=== PATIENT | male | born 1960 | race Caucasian/White ===

== ENCOUNTER 2017-10-31 20:50 | Observation (INO) ==
[2017-10-31] MEDS ORDERED: ASPIRIN 325 MG TABLET PO STA (21:37)
[2017-10-31] MEDS ORDERED: NITROGLYCERIN 2% OINT 1 INCH/GM PACK TOP STA (21:37)
[2017-10-31] MEDS ORDERED: ALUM/MAG/SIMETH/LIDO VISC 1:1 30 ML BOTTLE PO STA (21:37)
[2017-10-31] MEDS ORDERED: ONDANSETRON 4 MG/2 ML VIAL IV STA (21:37)
[2017-10-31] MEDS ORDERED: MORPHINE 4 MG/1 ML VIAL IV STA (21:37)
[2017-10-31] MEDS ORDERED: ONDANSETRON 4 MG/2 ML VIAL ONE (22:14)
[2017-10-31] MEDS ORDERED: NITROGLYCERIN 2% OINT 1 INCH/GM PACK TOP ONE (22:14)
[2017-10-31] MEDS ORDERED: ASPIRIN 325 MG TABLET ONE (22:15)
[2017-10-31] MEDS ORDERED: ALUM/MAG/SIMETH/LIDO VISC 1:1 30 ML BOTTLE PO ONE (22:15)
[2017-10-31] MEDS ORDERED: MORPHINE 4 MG/1 ML VIAL ONE (22:15)
[2017-10-31 22:34] LABS: Basophils # 0.1 10*3/uL (0.0-0.2); Basophils % 1.5 % (0.0-0.8); Eosinophils # 0.1 10*3/uL (0.0-0.87); Eosinophils % 0.7 % (0.00-10.9); Hematocrit 42.2 VOL% (42.0-52.0); Hemoglobin 14.7 GM/DL (14.0-18.0); Immature Granulocytes % 0.1 %; Immature Granulocytes Absolute 0.01 #; Lymphocytes # 3.1 10*3/uL (1.4-4.0); Lymphocytes % 46.6 % (21.2-54.2); Mean Corpuscular HGB Conc 34.8 GM/DL (32-36); Mean Corpuscular Hemoglobin 31 PG (27-34); Mean Corpuscular Volume 87.7 FL (87-102); Mean Platelet Volume 11.7 FL (9.6-12.0); Monocytes # 0.7 10*3/uL (0.11-0.8); Monocytes % 10.3 % (1.7-12.7); Neutrophils # 2.7 10*3/uL (1.4-7.4); Neutrophils % 40.8 % (38.7-73.9); Platelet Count 280 T/CUMM (130-400); Red Blood Count 4.81 MC/CUMM (3.8-5.5); Red Cell Distribution Width 12.7 % (9.3-17.3); White Blood Count 6.7 T/CUMM (4-12)
[2017-10-31 22:45] LABS: INR 1.2; PT Patient Result 12.8 SECS
[2017-10-31 23:06] LABS: Alanine Aminotransferase 46 U/L (16-61); Alkaline Phosphatase 62 U/L (45-117); Aspartate Amino Transferase 23 U/L (0-37); Bilirubin,Total < 0.39 MG/DL (0.2-1.0); Blood Urea Nitrogen 26 MG/DL (7-18); Calcium 9.3 MG/DL (8.5-10.1); Glucose 110 MG/DL (74-106); Osmolality,Calculated 280.7 MOS/KG (273-304); Potassium 3.9 MMOL/L (3.5-5.1); Sodium 138 MMOL/L (136-145); Total Protein 7.1 G/DL (6.4-8.3)
[2017-10-31] MEDS ORDERED: MAGNESIUM SULF RIDER 2 GM in PREMIX 1 EACH IV STA (23:09)
[2017-10-31] MEDS ORDERED: MAGNESIUM SULF RIDER 50 ML IV ONE (23:16)
[2017-11-01] MEDS ORDERED: SIMETHICONE CHEW 125 MG TABLET PO PRN (01:01)
[2017-11-01] MEDS ORDERED: MORPHINE 4 MG/1 ML VIAL IV PRN (01:01)
[2017-11-01] MEDS ORDERED: GLUCAGON 1 MG VIAL IM PRN (01:01)
[2017-11-01] MEDS ORDERED: NITROGLYCERIN SL 0.4 MG TABLET SL PRN (01:01)
[2017-11-01] MEDS ORDERED: ONDANSETRON 4 MG/2 ML VIAL IV PRN (01:01)
[2017-11-01] MEDS ORDERED: ZALEPLON 5 MG CAPSULE PO PRN (01:01)
[2017-11-01] MEDS ORDERED: DEXTROSE 50% 25 GM/50 ML VIAL IV PRN (01:01)
[2017-11-01] MEDS: DILTIAZEM CD 120 MG CAPSULE PO SCH ×3 (01:50→22:05)
[2017-11-01] MEDS: INSULIN REGULAR 100 UNIT/ML SUBCUT SCH ×4 (08:11→22:03)
[2017-11-01] MEDS ORDERED: MAGNESIUM SULF RIDER 4 GM in PREMIX 1 EACH IV PRN (08:24)
[2017-11-01] MEDS ORDERED: MAGNESIUM SULF RIDER 2 GM in PREMIX 1 EACH IV PRN ×2 (08:24→10:55)
[2017-11-01] MEDS ORDERED: RIVAROXABAN 20 MG TABLET PO SCH (09:00)
[2017-11-01] MEDS: methylPREDNISolone SOD SUC 125 MG/2 ML VIAL IV SCH ×3 (10:26→22:06)
[2017-11-01] MEDS ORDERED: POTASSIUM CHLORIDE RIDER 10 MEQ in PREMIX 1 EACH IV PRN (10:55)
[2017-11-01] MEDS ORDERED: DIAZEPAM 5 MG TABLET PO ONE (10:55)
[2017-11-01] MEDS: SODIUM CHLORIDE 0.45% 1,000 ML IV SCH ×2 (11:00→22:07)
[2017-11-01] MEDS: diphenhydrAMINE CAP 25 MG CAPSULE PO SCH ×3 (13:09→22:04)
[2017-11-01] MEDS: FAMOTIDINE 20 MG TABLET PO SCH ×2 (13:09→22:06)
[2017-11-01] MEDS: ASPIRIN EC 81 MG TABLET PO SCH (13:09)
[2017-11-01] MEDS: LOSARTAN 50 MG TABLET PO SCH (13:10)
[2017-11-01] MEDS: METOPROLOL SUCCINATE XL 50 MG TABLET PO SCH (13:10)
[2017-11-01] MEDS: DIGOXIN 0.25 MG TABLET PO SCH (13:10)
[2017-11-01] MEDS: PANTOPRAZOLE 40 MG TABLET PO SCH (13:11)
[2017-11-01] MEDS: GEMFIBROZIL 600 MG TABLET PO SCH ×2 (13:11→22:05)
[2017-11-01] MEDS: CETIRIZINE 10 MG TABLET PO SCH (13:11)
[2017-11-01] MEDS ORDERED: HEPARIN/NACL 0.9% 2 UNITS/ML 1,000 ML IV ONE (13:14)
[2017-11-01] MEDS: MAGNESIUM CHLORIDE 64 MG TABLET PO SCH (13:16)
[2017-11-01] MEDS: DOCUSATE SODIUM 100 MG CAPSULE PO SCH ×2 (13:16→22:05)
[2017-11-01] MEDS: glyBURIDE/METFORMIN 5-500 MG TABLET PO SCH ×2 (13:16→20:26)
[2017-11-01] MEDS: OMEGA 3 ACID ETHYL ESTERS 1 GM CAPSULE PO SCH ×2 (13:16→22:04)
[2017-11-01] MEDS ORDERED: HYDROmorphone 2 MG/1 ML VIAL ONE (14:41)
[2017-11-01] MEDS ORDERED: MIDAZOLAM 2 MG/2 ML VIAL ONE (14:41)
[2017-11-01] MEDS ORDERED: BIVALIRUDIN 250 MG VIAL IV ONE (15:25)
[2017-11-01] MEDS ORDERED: tiZANidine 4 MG TABLET PO ONE (22:00)
[2017-11-01] MEDS: TICAGRELOR 90 MG TABLET PO SCH (22:06)
[2017-11-02] MEDS: diphenhydrAMINE CAP 25 MG CAPSULE PO SCH ×2 (03:55→09:45)
[2017-11-02] MEDS: methylPREDNISolone SOD SUC 125 MG/2 ML VIAL IV SCH ×2 (04:00→09:44)
[2017-11-02] MEDS: SODIUM CHLORIDE 0.45% 1,000 ML IV SCH (04:00)
[2017-11-02 05:08] LABS: Basophils % 0.2 % (0.0-0.8); Hematocrit 41.2 VOL% (42.0-52.0); Hemoglobin 14.4 GM/DL (14.0-18.0); Immature Granulocytes % 0.6 %; Immature Granulocytes Absolute 0.06 #; Lymphocytes # 1.1 10*3/uL (1.4-4.0); Lymphocytes % 10.3 % (21.2-54.2); Mean Corpuscular Hemoglobin 30 PG (27-34); Mean Corpuscular Volume 86.4 FL (87-102); Monocytes # 0.2 10*3/uL (0.11-0.8); Monocytes % 1.9 % (1.7-12.7); Neutrophils # 9.5 10*3/uL (1.4-7.4); Platelet Count 271 T/CUMM (130-400); Red Blood Count 4.77 MC/CUMM (3.8-5.5); Red Cell Distribution Width 12.6 % (9.3-17.3); White Blood Count 10.9 T/CUMM (4-12)
[2017-11-02 06:02] LABS: Troponin I Only < 0.015 NG/ML (0.00-0.045)
[2017-11-02 06:16] LABS: Calcium 9.3 MG/DL (8.5-10.1); Osmolality,Calculated 279.2 MOS/KG (273-304); Potassium 4.7 MMOL/L (3.5-5.1); Risk Ratio 7.62; VLDL CHOLESTEROL 46.8 MG/DL
[2017-11-02 07:46] VITALS: BP 121/76
[2017-11-02] MEDS: INSULIN REGULAR 100 UNIT/ML SUBCUT SCH (09:43)
[2017-11-02] MEDS: LOSARTAN 50 MG TABLET PO SCH (09:44)
[2017-11-02] MEDS: DIGOXIN 0.25 MG TABLET PO SCH (09:44)
[2017-11-02] MEDS: MAGNESIUM CHLORIDE 64 MG TABLET PO SCH (09:44)
[2017-11-02] MEDS: DILTIAZEM CD 120 MG CAPSULE PO SCH (09:44)
[2017-11-02] MEDS: OMEGA 3 ACID ETHYL ESTERS 1 GM CAPSULE PO SCH (09:45)
[2017-11-02] MEDS: METOPROLOL SUCCINATE XL 50 MG TABLET PO SCH (09:45)
[2017-11-02] MEDS: FAMOTIDINE 20 MG TABLET PO SCH (09:45)
[2017-11-02] MEDS: PANTOPRAZOLE 40 MG TABLET PO SCH (09:45)
[2017-11-02] MEDS: ASPIRIN EC 81 MG TABLET PO SCH (09:45)
[2017-11-02] MEDS: TICAGRELOR 90 MG TABLET PO SCH (09:45)
[2017-11-02] MEDS: CETIRIZINE 10 MG TABLET PO SCH (09:45)
[2017-11-02] MEDS: DOCUSATE SODIUM 100 MG CAPSULE PO SCH (09:45)
[2017-11-02] MEDS: glyBURIDE/METFORMIN 5-500 MG TABLET PO SCH (09:50)
[2017-11-02] MEDS: GEMFIBROZIL 600 MG TABLET PO SCH (09:51)
[2017-11-02] MEDS ORDERED: ATORVASTATIN 80 MG TABLET PO SCH (21:00)
== END 2017-11-02 11:55 | disposition home or self-care (01) ==
LOC: N.ED 20:50 → N.EDINP 20:50 → N.TELES 11-01 00:31
PROVIDERS: ADMIT Family Medicine; ATTEND Family Medicine
PROC: CLCCHCL (ICD-10-PCS; 2017-11-01 15:45)

== ENCOUNTER 2017-11-03 01:54 | Observation (INO) ==
[2017-11-03] MEDS ORDERED: GLUCAGON 1 MG VIAL IM PRN (09:12)
[2017-11-03] MEDS ORDERED: DEXTROSE 50% 25 GM/50 ML VIAL IV PRN (09:12)
[2017-11-03] MEDS ORDERED: THROMBIN TOPICAL (RECOMBINANT) 5,000 UNIT VIAL TOP ONE (09:32)
[2017-11-03] MEDS: MORPHINE 4 MG/1 ML VIAL IV PRN ×2 (09:45→19:25)
[2017-11-03] MEDS: INSULIN REGULAR 100 UNIT/ML SUBCUT SCH ×3 (11:30→20:34)
[2017-11-03] MEDS: OMEGA 3 ACID ETHYL ESTERS 1 GM CAPSULE PO SCH (20:32)
[2017-11-03] MEDS: DILTIAZEM CD 120 MG CAPSULE PO SCH (20:32)
[2017-11-03] MEDS: glyBURIDE/METFORMIN 5-500 MG TABLET PO SCH (20:32)
[2017-11-03] MEDS: FAMOTIDINE 20 MG TABLET PO SCH (20:33)
[2017-11-03] MEDS: TICAGRELOR 90 MG TABLET PO SCH (20:33)
[2017-11-03] MEDS ORDERED: INSULIN GLARGINE 100 UNIT/ML SUBCUT SCH (21:00)
[2017-11-03] MEDS ORDERED: ATORVASTATIN 80 MG TABLET PO SCH (21:00)
[2017-11-04 06:51] VITALS: BP 102/75
[2017-11-04] MEDS ORDERED: CETIRIZINE 10 MG TABLET PO SCH (09:00)
[2017-11-04] MEDS ORDERED: MAGNESIUM CHLORIDE 64 MG TABLET PO SCH (09:00)
[2017-11-04] MEDS ORDERED: DIGOXIN 0.25 MG TABLET PO SCH (09:00)
[2017-11-04] MEDS ORDERED: LOSARTAN 50 MG TABLET PO SCH (09:00)
[2017-11-04] MEDS ORDERED: METOPROLOL SUCCINATE XL 50 MG TABLET PO SCH (09:00)
[2017-11-04] MEDS ORDERED: ASPIRIN EC 81 MG TABLET PO SCH (09:00)
[2017-11-04] MEDS ORDERED: INSULIN GLARGINE 100 UNIT/ML SUBCUT SCH (09:00)
[2017-11-04] MEDS: glyBURIDE/METFORMIN 5-500 MG TABLET PO SCH (09:11)
[2017-11-04] MEDS: OMEGA 3 ACID ETHYL ESTERS 1 GM CAPSULE PO SCH (09:11)
[2017-11-04] MEDS: FAMOTIDINE 20 MG TABLET PO SCH (09:11)
[2017-11-04] MEDS: TICAGRELOR 90 MG TABLET PO SCH (09:11)
[2017-11-04] MEDS: DILTIAZEM CD 120 MG CAPSULE PO SCH (09:11)
[2017-11-04] MEDS: INSULIN REGULAR 100 UNIT/ML SUBCUT SCH (09:12)
== END 2017-11-04 09:25 | disposition home or self-care (01) ==
LOC: N.ED 01:54 → N.EDINP 01:54 → N.3E 07:04
PROVIDERS: ADMIT Internal Medicine Cardiovascular Disease; ATTEND Internal Medicine Cardiovascular Disease

== ENCOUNTER 2017-11-07 12:50 | Inpatient (IN) ==
[2017-11-07] MEDS ORDERED: DILTIAZEM 50 MG/10 ML VIAL IV STA (13:34)
[2017-11-07] MEDS ORDERED: ASPIRIN 325 MG TABLET PO STA (13:34)
[2017-11-07] MEDS ORDERED: DILTIAZEM 50 MG/10 ML VIAL IV ONE (14:02)
[2017-11-07] MEDS ORDERED: ASPIRIN 325 MG TABLET ONE (14:02)
[2017-11-07 14:35] LABS: Basophils # 0.1 10*3/uL (0.0-0.2); Basophils % 1.2 % (0.0-0.8); Eosinophils # 0.1 10*3/uL (0.0-0.87); Eosinophils % 1.2 % (0.00-10.9); Hematocrit 40.9 VOL% (42.0-52.0); Immature Granulocytes Absolute 0.07 #; Lymphocytes # 1.8 10*3/uL (1.4-4.0); Lymphocytes % 27.3 % (21.2-54.2); Mean Corpuscular HGB Conc 34.2 GM/DL (32-36); Mean Corpuscular Hemoglobin 30 PG (27-34); Mean Corpuscular Volume 87.6 FL (87-102); Mean Platelet Volume 11.8 FL (9.6-12.0); Monocytes # 0.6 10*3/uL (0.11-0.8); Monocytes % 9.4 % (1.7-12.7); Neutrophils % 59.9 % (38.7-73.9); Platelet Count 262 T/CUMM (130-400); Red Blood Count 4.67 MC/CUMM (3.8-5.5); Red Cell Distribution Width 12.8 % (9.3-17.3); White Blood Count 6.7 T/CUMM (4-12)
[2017-11-07 14:42] LABS: PT Patient Result 10.9 SECS
[2017-11-07 15:11] LABS: Albumin 3.8 G/DL (3.4-5.0); Bilirubin,Total 0.5 MG/DL (0.2-1.0); Calcium 9.5 MG/DL (8.5-10.1); Potassium 4.4 MMOL/L (3.5-5.1); Total Protein 6.8 G/DL (6.4-8.3)
[2017-11-07] MEDS ORDERED: ONDANSETRON 4 MG/2 ML VIAL IV PRN (16:16)
[2017-11-07] MEDS ORDERED: ACETAMINOPHEN 325 MG TABLET PO PRN (16:16)
[2017-11-07] MEDS: GEMFIBROZIL 600 MG TABLET PO SCH (18:53)
[2017-11-07] MEDS: SODIUM CHLORIDE 0.45% 1,000 ML IV SCH (18:53)
[2017-11-07] MEDS: ENOXAPARIN 100 MG/ML SYRINGE SUBCUT SCH (18:53)
[2017-11-07] MEDS: DILTIAZEM CD 120 MG CAPSULE PO SCH (19:36)
[2017-11-07] MEDS: INSULIN GLARGINE 100 UNIT/ML SUBCUT SCH (21:28)
[2017-11-07] MEDS: OMEGA 3 ACID ETHYL ESTERS 1 GM CAPSULE PO SCH (21:29)
[2017-11-07] MEDS: FAMOTIDINE 20 MG TABLET PO SCH (21:29)
[2017-11-07] MEDS: MAGNESIUM CHLORIDE 64 MG TABLET PO SCH (21:30)
[2017-11-07] MEDS: ZALEPLON 5 MG CAPSULE PO PRN (21:30)
[2017-11-07] MEDS ORDERED: DILTIAZEM INJ 100 MG in SODIUM CHLORIDE 0.9% 100 ML IV SCH (21:30)
[2017-11-07] MEDS: ATORVASTATIN 80 MG TABLET PO SCH (21:30)
[2017-11-07] MEDS: TICAGRELOR 90 MG TABLET PO SCH (21:30)
[2017-11-08] MEDS: SODIUM CHLORIDE 0.45% 1,000 ML IV SCH ×3 (02:08→10:27)
[2017-11-08 05:12] LABS: Basophils # 0.1 10*3/uL (0.0-0.2); Basophils % 1.3 % (0.0-0.8); Eosinophils # 0.1 10*3/uL (0.0-0.87); Eosinophils % 1.3 % (0.00-10.9); Hematocrit 37.8 VOL% (42.0-52.0); Immature Granulocytes % 1.1 %; Immature Granulocytes Absolute 0.08 #; Lymphocytes # 2.7 10*3/uL (1.4-4.0); Lymphocytes % 38.5 % (21.2-54.2); Mean Corpuscular HGB Conc 34.4 GM/DL (32-36); Mean Corpuscular Hemoglobin 30 PG (27-34); Mean Corpuscular Volume 88.1 FL (87-102); Monocytes # 0.7 10*3/uL (0.11-0.8); Monocytes % 10.4 % (1.7-12.7); Neutrophils # 3.3 10*3/uL (1.4-7.4); Neutrophils % 47.4 % (38.7-73.9); Platelet Count 231 T/CUMM (130-400); Red Blood Count 4.29 MC/CUMM (3.8-5.5); Red Cell Distribution Width 12.8 % (9.3-17.3)
[2017-11-08 05:56] LABS: Calcium 8.9 MG/DL (8.5-10.1); Osmolality,Calculated 284.3 MOS/KG (273-304)
[2017-11-08] MEDS: ENOXAPARIN 100 MG/ML SYRINGE SUBCUT SCH (06:42)
[2017-11-08] MEDS ORDERED: TICAGRELOR 90 MG TABLET PO ONE (07:00)
[2017-11-08] MEDS ORDERED: HEPARIN/NACL 0.9% 2 UNITS/ML 1,000 ML IV ONE (07:15)
[2017-11-08] MEDS ORDERED: DIAZEPAM 5 MG TABLET PO ONE (07:16)
[2017-11-08] MEDS: LOSARTAN 50 MG TABLET PO SCH ×2 (07:44→10:31)
[2017-11-08] MEDS: METOPROLOL SUCCINATE XL 50 MG TABLET PO SCH ×2 (07:44→10:31)
[2017-11-08] MEDS: PANTOPRAZOLE 40 MG TABLET PO SCH ×2 (07:44→10:30)
[2017-11-08] MEDS: DILTIAZEM CD 120 MG CAPSULE PO SCH ×3 (07:45→20:54)
[2017-11-08] MEDS: ASPIRIN EC 81 MG TABLET PO SCH ×2 (07:45→10:30)
[2017-11-08] MEDS ORDERED: DILTIAZEM 100 MG VIAL.ADD IV ONE (07:56)
[2017-11-08] MEDS ORDERED: SODIUM CHLORIDE 0.9% 100 ML IV ONE (07:57)
[2017-11-08] MEDS ORDERED: MIDAZOLAM 2 MG/2 ML VIAL ONE ×2 (08:12→09:20)
[2017-11-08] MEDS ORDERED: fentaNYL 100 MCG/2 ML VIAL ONE (08:13)
[2017-11-08] MEDS ORDERED: diphenhydrAMINE CAP 25 MG CAPSULE PO ONE (08:16)
[2017-11-08] MEDS ORDERED: ENOXAPARIN 60 MG/0.6 ML SYRINGE ONE (09:19)
[2017-11-08] MEDS ORDERED: DEXTROSE 50% 25 GM/50 ML VIAL IV PRN (09:50)
[2017-11-08] MEDS ORDERED: GLUCAGON 1 MG VIAL IM PRN (09:50)
[2017-11-08] MEDS ORDERED: ACETAMINOPHEN/CODEINE 300-30 MG TABLET PO PRN (09:51)
[2017-11-08] MEDS: FAMOTIDINE 20 MG TABLET PO SCH ×2 (10:29→20:54)
[2017-11-08] MEDS: OMEGA 3 ACID ETHYL ESTERS 1 GM CAPSULE PO SCH ×2 (10:29→20:54)
[2017-11-08] MEDS: GEMFIBROZIL 600 MG TABLET PO SCH ×2 (10:29→16:27)
[2017-11-08] MEDS: MAGNESIUM CHLORIDE 64 MG TABLET PO SCH ×2 (10:29→20:54)
[2017-11-08] MEDS: CETIRIZINE 10 MG TABLET PO SCH (10:29)
[2017-11-08] MEDS: TICAGRELOR 90 MG TABLET PO SCH ×2 (10:30→20:53)
[2017-11-08] MEDS: INSULIN GLARGINE 100 UNIT/ML SUBCUT SCH ×2 (10:31→20:53)
[2017-11-08] MEDS: DIGOXIN 0.25 MG TABLET PO SCH (13:07)
[2017-11-08] MEDS: ATORVASTATIN 80 MG TABLET PO SCH (20:53)
[2017-11-08] MEDS: ZALEPLON 5 MG CAPSULE PO PRN (20:53)
[2017-11-09 04:00] LABS: Basophils # 0.1 10*3/uL (0.0-0.2); Eosinophils # 0.1 10*3/uL (0.0-0.87); Eosinophils % 1.1 % (0.00-10.9); Hematocrit 37.9 VOL% (42.0-52.0); Hemoglobin 12.7 GM/DL (14.0-18.0); Immature Granulocytes % 0.7 %; Immature Granulocytes Absolute 0.06 #; Lymphocytes # 2.2 10*3/uL (1.4-4.0); Lymphocytes % 26.6 % (21.2-54.2); Mean Corpuscular HGB Conc 33.5 GM/DL (32-36); Mean Corpuscular Hemoglobin 30 PG (27-34); Mean Platelet Volume 11.8 FL (9.6-12.0); Neutrophils # 4.9 10*3/uL (1.4-7.4); Neutrophils % 58.6 % (38.7-73.9); Platelet Count 241 T/CUMM (130-400); Red Blood Count 4.26 MC/CUMM (3.8-5.5); Red Cell Distribution Width 12.7 % (9.3-17.3); White Blood Count 8.4 T/CUMM (4-12)
[2017-11-09 04:32] LABS: Calcium 9.2 MG/DL (8.5-10.1); Osmolality,Calculated 278.5 MOS/KG (273-304)
[2017-11-09] MEDS: INSULIN GLARGINE 100 UNIT/ML SUBCUT SCH (08:27)
[2017-11-09] MEDS: OMEGA 3 ACID ETHYL ESTERS 1 GM CAPSULE PO SCH (08:27)
[2017-11-09] MEDS: MAGNESIUM CHLORIDE 64 MG TABLET PO SCH (08:28)
[2017-11-09] MEDS: DILTIAZEM CD 120 MG CAPSULE PO SCH (08:28)
[2017-11-09] MEDS: FAMOTIDINE 20 MG TABLET PO SCH (08:28)
[2017-11-09] MEDS: METOPROLOL SUCCINATE XL 50 MG TABLET PO SCH (08:29)
[2017-11-09] MEDS: PANTOPRAZOLE 40 MG TABLET PO SCH (08:29)
[2017-11-09] MEDS: LOSARTAN 50 MG TABLET PO SCH (08:29)
[2017-11-09] MEDS: GEMFIBROZIL 600 MG TABLET PO SCH (08:29)
[2017-11-09] MEDS: CETIRIZINE 10 MG TABLET PO SCH (08:29)
[2017-11-09] MEDS: ASPIRIN EC 81 MG TABLET PO SCH (08:29)
[2017-11-09] MEDS: TICAGRELOR 90 MG TABLET PO SCH (08:30)
[2017-11-09 12:29] VITALS: BP 124/75
[2017-11-09] MEDS: DIGOXIN 0.25 MG TABLET PO SCH (13:14)
== END 2017-11-09 14:20 | disposition home or self-care (01) | DRG 247 ==
LOC: N.ED 12:50 → N.EDINP 16:16 → N.TELES 17:07
PROVIDERS: ADMIT Internal Medicine Cardiovascular Disease; ATTEND Internal Medicine Cardiovascular Disease

== ENCOUNTER 2021-03-07 18:46 | Observation (INO) ==
[2021-03-07 19:13] LABS: Basophils # 0.1 10*3/uL (0.0-0.2); Basophils % 0.6 % (0.0-0.8); Eosinophils % 0.4 % (0.00-10.9); Hematocrit 47.7 VOL% (42.0-52.0); Hemoglobin 16.2 GM/DL (14.0-18.0); Immature Granulocytes % 0.4 %; Immature Granulocytes Absolute 0.04 #; Lymphocytes # 2.4 10*3/uL (1.4-4.0); Lymphocytes % 21.7 % (21.2-54.2); Mean Corpuscular Volume 87.7 FL (87-102); Mean Platelet Volume 11.2 FL (9.6-12.0); Monocytes % 9.3 % (1.7-12.7); Neutrophils % 67.6 % (38.7-73.9); Platelet Count 301 T/CUMM (130-400); Red Blood Count 5.44 MC/CUMM (3.8-5.5)
[2021-03-07 19:30] LABS: Albumin 4.2 G/DL (3.4-5.0); Bilirubin,Total 0.8 MG/DL (0.20-1.00); Calcium 9.5 MG/DL (8.5-10.1); Osmolality,Calculated 273.2 MOS/KG (273-304); Potassium 3.9 MMOL/L (3.5-5.1); Total Protein 7.5 G/DL (6.4-8.2)
[2021-03-07 19:31] LABS: INR 1.1; PT Patient Result 12.6 SECS (10.5-12.0); Partial Thromboplastin Time 25.2 SECS (23.9-33.8)
[2021-03-07] MEDS ORDERED: DOCUSATE SODIUM 100 MG CAPSULE PO PRN (20:54)
[2021-03-07] MEDS ORDERED: ACETAMINOPHEN 325 MG TABLET PO PRN (20:54)
[2021-03-07] MEDS ORDERED: GLUCAGON 1 MG VIAL IM PRN (20:54)
[2021-03-07] MEDS ORDERED: BISACODYL 5 MG TABLET PO PRN (20:54)
[2021-03-07] MEDS ORDERED: ZALEPLON 5 MG CAPSULE PO PRN (20:54)
[2021-03-07] MEDS ORDERED: ONDANSETRON 4 MG/2 ML VIAL IV PRN (20:54)
[2021-03-07] MEDS ORDERED: DEXTROSE 50% 25 GM/50 ML VIAL IV PRN (20:54)
[2021-03-07] MEDS ORDERED: CALCIUM CARBONATE CHEW 500 MG TABLET PO PRN (20:54)
[2021-03-07] MEDS ORDERED: ATORVASTATIN 80 MG TABLET PO SCH (21:00)
[2021-03-07] MEDS ORDERED: ENOXAPARIN 40 MG/0.4 ML SYRINGE SUBCUT SCH (21:00)
[2021-03-07] MEDS ORDERED: LOSARTAN 25 MG TABLET PO SCH (21:00)
[2021-03-07] MEDS ORDERED: TAMSULOSIN 0.4 MG CAPSULE PO SCH (21:00)
[2021-03-07] MEDS ORDERED: MAGNESIUM SULF RIDER 2 GM/50 ML PREMIX IV ONE (21:00)
[2021-03-07] MEDS ORDERED: CLOPIDOGREL 75 MG TABLET PO SCH (21:00)
[2021-03-07] MEDS: INSULIN REGULAR 100 UNIT/ML SUBCUT SCH (22:46)
[2021-03-07] MEDS: OMEGA 3 ACID ETHYL ESTERS 1 GM CAPSULE PO SCH (23:47)
[2021-03-08 00:55] LABS: Basophils # 0.1 10*3/uL (0.0-0.2); Eosinophils # 0.1 10*3/uL (0.0-0.87); Eosinophils % 0.6 % (0.00-10.9); Hematocrit 45.5 VOL% (42.0-52.0); Hemoglobin 15.7 GM/DL (14.0-18.0); Immature Granulocytes % 0.8 %; Immature Granulocytes Absolute 0.06 #; Lymphocytes # 2.5 10*3/uL (1.4-4.0); Lymphocytes % 32.6 % (21.2-54.2); Mean Corpuscular HGB Conc 34.5 GM/DL (32-36); Mean Corpuscular Volume 88.5 FL (87-102); Mean Platelet Volume 11.2 FL (9.6-12.0); Platelet Count 250 T/CUMM (130-400); Red Blood Count 5.14 MC/CUMM (3.8-5.5); White Blood Count 7.8 T/CUMM (4-12)
[2021-03-08 01:09] LABS: Albumin 3.8 G/DL (3.4-5.0); Bilirubin,Total 0.6 MG/DL (0.20-1.00); Calcium 9.6 MG/DL (8.5-10.1); Osmolality,Calculated 277.8 MOS/KG (273-304); Potassium 3.6 MMOL/L (3.5-5.1); Risk Ratio 4.22; VLDL Cholesterol 39.8 MG/DL
[2021-03-08] MEDS ORDERED: ASPIRIN EC 81 MG TABLET PO SCH (09:00)
[2021-03-08] MEDS ORDERED: METOPROLOL SUCCINATE XL 50 MG TABLET PO SCH (09:00)
[2021-03-08] MEDS ORDERED: METOPROLOL SUCCINATE XL 100 MG TABLET PO SCH (09:00)
[2021-03-08] MEDS ORDERED: PANTOPRAZOLE 40 MG TABLET PO SCH (09:00)
[2021-03-08] MEDS ORDERED: LORATADINE 10 MG TABLET PO SCH (09:00)
[2021-03-08] MEDS ORDERED: POTASSIUM CHLORIDE 20 MEQ TABLET PO SCH (09:00)
[2021-03-08] MEDS ORDERED: MAGNESIUM CHLORIDE 64 MG TABLET PO SCH (09:00)
[2021-03-08] MEDS: OMEGA 3 ACID ETHYL ESTERS 1 GM CAPSULE PO SCH (09:47)
[2021-03-08] MEDS: INSULIN REGULAR 100 UNIT/ML SUBCUT SCH ×2 (09:47→13:01)
[2021-03-08 12:25] VITALS: BP 116/78
== END 2021-03-08 13:46 | disposition home or self-care (01) ==
LOC: N.EDINP 18:46 → N.ED 18:46 → SUATTDRO 20:54 → N.TELES 23:20
PROVIDERS: ADMIT Hospitalist; ATTEND Internal Medicine